=== PATIENT | male | born 1960 | race Caucasian/White ===

== ENCOUNTER → 2020-01-14 | Outpatient (CLI) | payer OTHER ==
[~2020-01-14] MED LIST: ALPR1 PO
[2020-01-14 13:52] LABS: Protein, Urine Quantitative 5.5 mg/dL (0.0-11.9)
[2020-01-14 13:57] LABS: Microalbumin, Urine Quant. 6.38 mg/L (0.000-20.000)
== END | disposition home or self-care (01) ==
LOC: LAB 10:57 → LAB SHORT 10:57 → LAB FUT 01-10 08:15
PROVIDERS: Internal Medicine Nephrology
DX: N18.2 Chronic kidney disease, stage 2 (mild) (principal); D63.1 Anemia in chronic kidney disease; N25.81 Secondary hyperparathyroidism of renal origin; E55.9 Vitamin D deficiency, unspecified; E78.00 Pure hypercholesterolemia, unspecified; N40.1 Benign prostatic hyperplasia with lower urinary tract symptoms; R76.9 Abnormal immunological finding in serum, unspecified; R94.5 Abnormal results of liver function studies; R94.6 Abnormal results of thyroid function studies
CPT/HCPCS: 81050; 82043; 82570; 84156